=== PATIENT | male | born 1950 | race Caucasian/White ===

== ENCOUNTER 2018-10-07 16:27 | Emergency (ER) | payer BC ==
[~2018-10-07] VITALS: Ht 175.3 cm; Wt 86.6 kg
[~2018-10-07 16:27] MED LIST: ASPI-817 PO; ATOR20TA38 PO; BECL8.7A5 INH; FLUT16SP17 NASAL; ISOS30TA20 PO; METO-319 PO; NAPR500T8 PO; NITR0.4T39 SL; RANI15SY GTB; RANO500T2 PO
[2018-10-07 16:34] VITALS: Ht 175.3 cm; Wt 86.6 kg
[2018-10-07] MEDS ORDERED: ONDANSETRON 4 MG INJ IV STA (16:57)
[2018-10-07] MEDS ORDERED: morphine 4 MG/ML VIAL IV STA (16:57)
[2018-10-07] MEDS ORDERED: IBUP-1542 PO (19:34)
[2018-10-07] MEDS ORDERED: ONDA4TAB14 PO (19:34)
[2018-10-07 19:45] VITALS: BP 129/63; PULSE 87; RESP 23
--- NOTE | 2018-10-07 20:07 | ERD ---
ER Documentation Chief Complaint Chief Complaint Complains of abdominal pain x 3 days HPI Patient is a 68-year-old male with no medical problems who presents with abdominal pain. He has had abdominal pains for the past 2 hours. He came with his friend. The pain is in the right lower quadrant and the pain comes and goes. He has had no fevers. Upon review of old medical records the patient one previous visit to the ER in 2014. His primary doctor is Dr. Perez. ROS All systems reviewed and are negative except as per history of present illness. Medications Home Meds Active Scripts Ondansetron (Ondansetron Odt) 4 Mg Tab.rapdis, 4 MG PO Q6H PRN for NAUSEA AND/OR VOMITING, #10 TAB Prov:MO MURPHY MD 10/07/18 Ibuprofen* (Motrin*) 600 Mg Tab, 600 MG PO Q6H PRN for PAIN AND OR ELEVATED TEMP, #30 TAB Prov:MO MURPHY MD 10/07/18 Metoprolol Succinate* (Toprol XL*) 50 Mg Tabsr, 50 MG PO DAILY, #30 Prov:SIMON DE LA CRUZ Y 10/11/14 Atorvastatin Calcium* (Atorvastatin Calcium*) 20 Mg Tab, 80 MG PO DAILY@21, #30 Prov:SIMON DE LA CRUZ 10/11/14 Aspirin* (Aspirin* EC) 81 Mg Tabec, 81 MG PO DAILY, #30 Prov:SIMON DE LA CRUZ Y 10/11/14 Reported Medications Isosorbide Dinitrate* (Isosorbide Dinitrate*) 30 Mg Tablet, 30 MG PO BID, TAB 10/09/14 Naproxen* (Naproxen EC*) 500 Mg Tablet.dr, 500 MG PO BID, TAB 10/09/14 Ranitidine Hcl* (Ranitidine Hcl*) 15 Mg/Ml Syrup, 150 MG GTB BID, ML 10/09/14 Ranolazine* (Ranexa*) 500 Mg Tab.sr.12h, 500 MG PO Q12, TAB 10/09/14 Beclomethasone Dip* (Qvar 80*) 7.3 Gm Inha, 1 PUFF INH BID, INH 10/09/14 Fluticasone Propionate* (Fluticasone Propionate* Nasal) 50 Mcg/[place] - 16 Gm [place].susp, 2 SPRAYS NASAL DAILY, EA TO EACH NOSTRIL 10/09/14 Nitroglycerin* (Nitrostat*) 0.4 Mg Tab.subl, 0.4 MG SL Q5MIN PRN for CHEST PAIN, BOTTLE 10/09/14 Allergies Allergies: Coded Allergies: No Known Allergy (Unverified , 10/09/14) PMhx/Soc Medical and Surgical Hx: pt denies Surgical Hx History of Surgery: No Anesthesia Reaction: No Hx Neurological Disorder: No Hx Respiratory Disorders: Yes (asthma, bronchitis) Hx Cardiac Disorders: Yes (HTN) Hx Psychiatric Problems: No Hx Miscellaneous Medical Probl: No Hx Alcohol Use: No Hx Substance Use: No Hx Tobacco Use: Yes (quit 3 days ago; 1 pack/day) Smoking Status: Current every day smoker FmHx Family History: No diabetes Physical Exam Vitals Vital Signs Date Temp Pulse Resp B/P (MAP) Pulse Ox O2 O2 Flow FiO2 Time Delivery Rate 10/07/18 98.0 87 23 129/63 96 Room Air 19:45 (85) 10/07/18 87 16 128/66 96 Room Air 18:50 (86) 10/07/18 99.2 106 20 123/64 96 16:34 (83) Physical Exam Const: Mild distress secondary to pain Head: Atraumatic Eyes: Normal Conjunctiva ENT: Normal External Ears, Nose and Mouth. Neck: Full range of motion. No meningismus. Resp: Clear to auscultation bilaterally Cardio: Regular rate and rhythm, no murmurs Abd: Right upper and right lower quadrant tenderness to palpation without rebound or guarding Skin: No petechiae or rashes Back: No midline or flank tenderness Ext: No cyanosis, or edema Neur: Awake and alert Psych: Normal Mood and Affect Result Diagram: 10/07/18 1735 10/07/18 1735 Results 24 hrs Laboratory Tests Test 10/07/18 17:35 White Blood Count 7.0 10^3/ul Red Blood Count 3.64 10^6/ul Hemoglobin 11.7 g/dl Hematocrit 35.5 % Mean Corpuscular Volume 97.5 fl Mean Corpuscular Hemoglobin 32.1 pg Mean Corpuscular Hemoglobin Concent 33.0 g/dl Red Cell Distribution Width 13.2 % Platelet Count 262 10^3/UL Mean Platelet Volume 9.7 fl Immature Granulocytes % 2.000 % Neutrophils % 56.0 % Lymphocytes % 27.0 % Monocytes % 13.2 % Eosinophils % 1.1 % Basophils % 0.7 % Nucleated Red Blood Cells % 0.0 /100WBC Immature Granulocytes # 0.140 10^3/ul Neutrophils # 3.9 10^3/ul Lymphocytes # 1.9 10^3/ul Monocytes # 0.9 10^3/ul Eosinophils # 0.1 10^3/ul Basophils # 0.1 10^3/ul Nucleated Red Blood Cells # 0.0 10^3/ul Urine Color YELLOW Urine Clarity CLEAR Urine pH 5.0 Urine Specific [place]yman 1.026 Urine Ketones NEGATIVE mg/dL Urine Nitrite NEGATIVE mg/dL Urine Bilirubin NEGATIVE mg/dL Urine Urobilinogen NEGATIVE mg/dL Urine Leukocyte Esterase NEGATIVE Gaudencio/ul Urine Hemoglobin NEGATIVE mg/dL Urine Glucose 1+ mg/dL Urine Total Protein NEGATIVE mg/dl Sodium Level 140 mmol/L Potassium Level 4.3 mmol/L Chloride Level 105 mmol/L Carbon Dioxide Level 24 mmol/L Anion Gap 11 Blood Urea Nitrogen 21 mg/dl Creatinine 1.27 mg/dl Est Glomerular Filtrat Rate mL/min 56 mL/min Glucose Level 143 mg/dl Calcium Level 9.0 mg/dl Total Bilirubin 0.1 mg/dl Direct Bilirubin 0.00 mg/dl Indirect Bilirubin 0.1 mg/dl Aspartate Amino Transf (AST/SGOT) 42 IU/L Alanine Aminotransferase (ALT/SGPT) 39 IU/L Alkaline Phosphatase 76 IU/L Total Protein 7.2 g/dl Albumin 3.9 g/dl Globulin 3.30 g/dl Albumin/Globulin Ratio 1.18 Lipase 69 U/L Current Medications Medications Dose Sig/Benita Start Time Status Last (Trade) Ordered Route PRN Stop Time Admin Dose Reason Admin Morphine 4 mg ONCE STAT 10/07/18 DC 10/07/18 Sulfate IV 16:57 17:35 (morphine) 10/07/18 16:58 Ondansetron 4 mg ONCE STAT 10/07/18 DC 10/07/18 HCl (Zofran IV 16:57 17:34 Inj) 10/07/18 16:58 Procedures/MDM Ultrasound the gallbladder read by radiology. CT abdomen pelvis read by radiology. Patient is a 68-year-old male presents with abdominal pain. Laboratory studies were basically normal. Ultrasound shows a contracted gallbladder with stones but no cholecystitis. CT abdomen pelvis shows no signs of surgical process at this time. The patient will be discharged with a prescription for ibuprofen and Zofran. I believe he has biliary colic. 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 He can return for any worsening symptoms. Departure Diagnosis: Primary Impression: Biliary colic Additional Impression: Abdominal pain Abdominal location: right lower quadrant Qualified Codes: R10.31 - Right lower quadrant pain Condition: Fair Patient Instructions: Abdominal Pain, Biliary Colic With Gallstone (Confirmed) Referrals: BLANCA CENTENO MD Additional Instructions: Call your primary care doctor TOMORROW for an appointment during the next 1-2 days.See the doctor sooner or return here if your condition worsens before your appointment time. MO MURPHY MD Oct 07, 2018 20:07
== END 2018-10-07 19:47 | disposition home or self-care (01) ==
LOC: E/R 16:27
DX: K80.50 Calculus of bile duct without cholangitis or cholecystitis without obstruction (principal); J45.909 Unspecified asthma, uncomplicated; I10 Essential (primary) hypertension; F17.210 Nicotine dependence, cigarettes, uncomplicated; Z79.82 Long term (current) use of aspirin
CPT/HCPCS: 74176; 76705; 80053; 81003; 83690; 85025; 96374; 96375; J2270; J2405; Z7502; Z7610